=== PATIENT | female | born 1990 ===

== ENCOUNTER 2017-06-21 11:41 | Emergency (ER) | payer MEDICAID, OTHER ==
[2017-06-21] MEDS ORDERED: Sodium Chloride 0.9% 1,000 ML IV ONE ×2 (11:50→17:59)
[2017-06-21] MEDS ORDERED: Sodium Chloride 0.9% 1,000 ML ONE (11:55)
[2017-06-21 11:59] LABS: BASO % 0.5 % (0.0-2.0); EOS # 0.1 K/uL (0.0-0.7); EOS % 2.1 % (0.0-4.0); HEMOGLOBIN 12.5 g/dL (11.0-16.0); LYMPH # 1.8 K/uL (1.0-4.3); LYMPH % 26.8 % (20.0-40.0); MEAN CELL VOLUME 86.2 fL (81.0-99.0); MEAN CORPUSCULAR HEMOGLOBIN 29.4 pg (27.0-31.0); MEAN CORPUSCULAR HGB CONC 34.1 g/dL (33.0-37.0); MEAN PLATELET VOLUME 7.6 fL (7.2-11.7); MONO # 0.4 K/uL (0.0-0.8); MONO % 5.4 % (0.0-10.0); NEUT # 4.4 K/uL (1.8-7.0); NEUT % 65.2 % (50.0-75.0); NRBC % 0.1 % (0.0-2.0); RBC 4.23 Mil/uL (3.80-5.20); RED CELL DISTRIBUTION WIDTH 12.8 % (11.5-14.5); WHITE BLOOD COUNT 6.8 K/uL (4.8-10.8)
[2017-06-21 12:07] LABS: ALBUMIN 4.2 g/dL (3.5-5.0)
[2017-06-21 12:10] LABS: GFR AFRICAN-AMERICAN > 60; GFR NON-AFRICAN AMERICAN > 60
[2017-06-21 12:11] LABS: ALB/GLOB RATIO 1.3 (1.0-2.1); ALT/SGPT 22 U/L (9-52); AST/SGOT 20 U/L (14-36); BLOOD UREA NITROGEN 6 mg/dL (7-17); CALCIUM 8.2 mg/dl (8.6-10.4)
[2017-06-21] MEDS ORDERED: LIDOCAINE IV STA (12:20)
[2017-06-21] MEDS ORDERED: SODIUM CHLORIDE 0.9% IV STA (12:20)
[2017-06-21 13:17] LABS: HCG,QUALITATIVE URINE NEGATIVE (NEGATIVE)
[2017-06-21 13:23] LABS: SQUAMOUS EPITHIAL 13 /hpf (0-5); URINE BACTERIA RARE (<OCC); URINE BILIRUBIN NEGATIVE (NEGATIVE); URINE BLOOD 2+ (NEGATIVE); URINE CLARITY Hazy (Clear); URINE COLOR Yellow (YELLOW); URINE GLUCOSE (UA) NORMAL (Normal); URINE LEUKOCYTE ESTERASE TRACE Leu/uL (Negative); URINE NITRATE NEGATIVE (NEGATIVE); URINE PROTEIN NEGATIVE (NEGATIVE); URINE UROBILINOGEN NORMAL mg/dL (0.2-1.0)
--- NOTE | 2017-06-21 14:23 | C.PDOC ---
History Of Present Illness <Tiny Guerrero - Last Filed: 06/21/17 20:31> <FranklinrobertBelinda - Last Filed: 06/22/17 16:59> 26 y/o female presents to emergency department for evaluation of sudden left flank pain which onset this morning. Pt states pain is severe radiating to abdominal wall. Pain associated with discomfort on urination. Denies history of kidney disease. Denies fever, chills, chest pain, SOB, vomiting, diarrhea or any other complaints. (Belinda Leon) <Tiny Guerrero - Last Filed: 06/21/17 20:31> History Per: Patient History/Exam Limitations: no limitations Onset/Duration Of Symptoms: Hrs, Sudden Onset Current Symptoms Are (Timing): Still Present Severity: Severe Quality Of Discomfort: "Pain" Associated Symptoms: Urinary Symptoms. denies: Fever, Chills, Nausea, Vomiting Alleviating Factors: None Recent travel outside of the [place]: No <Belinda Leon - Last Filed: 06/22/17 16:59> Time Seen by Provider: 06/21/17 11:54 Chief Complaint (Nursing): Female Genitourinary Past Medical History Reviewed: Historical Data, Nursing Documentation, Vital Signs Surgical History: Cholecystectomy Family History: States: Unknown Family Hx - Social History Hx Alcohol Use: No Hx Substance Use: No - Immunization History Hx Influenza Vaccination: No <Belinda Leon - Last Filed: 06/22/17 16:59> Vital Signs: Last Vital Signs Temp 97.8 F 06/21/17 20:57 Pulse 72 06/21/17 20:57 Resp 18 06/21/17 20:57 BP 128/72 06/21/17 20:57 Pulse Ox 98 06/21/17 20:57 Review Of Systems Except As Marked, All Systems Reviewed And Found Negative. Constitutional: Negative for: Fever, Chills Cardiovascular: Negative for: Chest Pain Gastrointestinal: Negative for: Nausea, Vomiting, Diarrhea Genitourinary: Positive for: Dysuria, Other (left flank pain radiating to abdominal wall). Negative for: Hematuria <Belinda Leon - Last Filed: 06/22/17 16:59> Physical Exam - Physical Exam Appears: Well, Non-toxic, No Acute Distress Skin: Normal Color, Warm, Dry, No Rash Eye(s): bilateral: PERRL Nose: No Flaring Oral Mucosa: Moist, No Drooling, No Trismus Throat: No Erythema, No Exudate, No Drooling Neck: Supple Cardiovascular: Rhythm Regular Respiratory: No Stridor, No Wheezing Gastrointestinal/Abdominal: Soft, Tenderness (mild left sided tenderness), No Distention, No Guarding, No Rebound Back: No CVA Tenderness, Other (Let flank tenderness) Extremity: No Pedal Edema Neurological/Psych: Oriented x3, Normal Speech <FranklinrobertBelinda - Last Filed: 06/22/17 16:59> ED Course And Treatment - Laboratory Results Result Diagrams: 06/21/17 11:53 06/21/17 11:53 Reevaluation Time: 20:31 Reassessment Condition: Improved (APPEARS COMFORTABLE NAD. US REPORT REVIEWED. ADONAY W ABX FOR POSSIBLE DIVERTICULITIS, ADVISED PMD FU) <CesarTiny - Last Filed: 06/21/17 20:31> - Laboratory Results Result Diagrams: 06/21/17 11:53 06/21/17 11:53 O2 Sat by Pulse Oximetry: 100 (room air) Pulse Ox Interpretation: Normal - CT Scan/US CT abd/pelvis Other Rad Studies (CT/US): Radiology Report Reviewed CT/US Interpretation: Accession No. : [id number]. Patient Name / ID : MAYLIN DE LA TORRE / [id number]. Exam Date : 06/21/2017 15:23:08 ( Approved ). Study Comment : Sex / Age : F / 26Y. Creator : Selene Balderas MD. Dictator : Administrative Support Associate : Hat Lining Paster : Selene Balderas MD. Approver2 : Report Date : 06/21/2017 17:09:56. My Comment : . PROCEDURE: CT Abdomen and Pelvis without Oral or IV contrast. HISTORY: Left flank pain. COMPARISON : None available. TECHNIQUE: Contiguous axial images of the abdomen and pelvis. No oral or IV contrast administered. Coronal and Sagittal reformats generated and reviewed. Radiation dose: Total exam DLP = 192.12 mGy-cm. This CT exam was performed using one or more of the following dose reduction techniques: Automated exposure control, adjustment of the mA and/or kV according to patient size, and/or use of iterative reconstruction technique. FINDINGS: There is limited evaluation of the solid organs without the administration of IV contrast. LOWER THORAX: No visible consolidation, pleural effusion, or pneumothorax. LIVER: Unremarkable unenhanced appearance. GALLBLADDER AND BILE DUCTS: Not visualized ; either decompressed or surgically removed. Surgical clips are not identified. PANCREAS: Unremarkable unenhanced appearance. SPLEEN: Unremarkable unenhanced appearance. ADRENALS: Unremarkable unenhanced appearance. KIDNEYS AND URETERS: No hydronephrosis or obstructing renal calculus. BLADDER: The urinary bladder appears unremarkable. REPRODUCTIVE: Uterus is present. 3.1 x 3.6 cm left adnexal lesion measures approximately 16 Hounsfield units, indeterminate; possibly hemorrhagic cyst. APPENDIX: The presumed appendix appears within normal limits of caliber. No secondary signs of acute appendicitis. BOWEL: The stomach is nondistended. Lack of oral contrast limits evaluation for bowel pathology. The bowel loops appear within normal limits of caliber without evidence of intestinal obstruction. Scattered diverticula. Minimal associated inflammatory changes at the level of the left colon; diverticulitis cannot be excluded. Correlate clinically. PERITONEUM: No significant free fluid. No definite free air. LYMPH NODES: No bulky lymphadenopathy identified. VASCULATURE: No aortic aneurysm. BONES: No acute osseous abnormality is detected. OTHER FINDINGS: None. IMPRESSION: 3.1 x 3.6 cm left adnexal lesion measures approximately 16 HU, indeterminate; possibly hemorrhagic cyst. Recommend correlation with pelvic ultrasound. Scattered diverticula. Minimal associated inflammatory changes at the level of the left colon; diverticulitis cannot be excluded. Correlate clinically. Additional findings as above. Progress Note: Case discussed with . US pelvic results pending. Re-eval and dispo- pending. <Belinda Leon - Last Filed: 06/22/17 16:59> Disposition Counseled Patient/Family Regarding: Studies Performed, Diagnosis, Need For Followup, Rx Given - Disposition Disposition Time: 20:31 <Tiny Guerrero - Last Filed: 06/21/17 20:31> <Belinda Leon - Last Filed: 06/22/17 16:59> - Disposition Referrals: [facility] [Outside] [facility] [Outside] Disposition: HOME/ ROUTINE Condition: IMPROVED Prescriptions: Ciprofloxacin [Cipro] 1 tab PO BID #14 tab Ibuprofen [Motrin] 400 mg PO QID #30 tab Metronidazole [Flagyl] 500 mg PO BID #14 tab Instructions: Diverticulitis (ED) Forms: Work/School/Gym Excuse, [facility] (Wolof) Print Language: LAO - Clinical Impression Clinical Impression: Abdominal pain <Tiny Guerrero - Last Filed: 06/21/17 20:31> - PA / [employer]ER / Resident Statement MD/DO has reviewed & agrees with the documentation as recorded. - Scribe Statement The provider has reviewed the documentation as recorded by the Scribe <Belinda Leon - Last Filed: 06/22/17 16:59> - Scribe Statement Nicholas Morataya All medical record entries made by the Scribe were at my direction and personally dictated by me. I have reviewed the chart and agree that the record accurately reflects my personal performance of the history, physical exam, medical decision making, and the department course for this patient. I have also personally directed, reviewed, and agree with the discharge instructions and disposition. (Belinda Leon)
--- NOTE | 2017-06-21 17:12 | CT ---
PROCEDURE: CT Abdomen and Pelvis without Oral or IV contrast. HISTORY: Left flank pain COMPARISON: None available. TECHNIQUE: Contiguous axial images of the abdomen and pelvis. No oral or IV contrast administered. Coronal and Sagittal reformats generated and reviewed. Radiation dose: Total exam DLP = 192.12 mGy-cm. This CT exam was performed using one or more of the following dose reduction techniques: Automated exposure control, adjustment of the mA and/or kV according to patient size, and/or use of iterative reconstruction technique. FINDINGS: There is limited evaluation of the solid organs without the administration of IV contrast. LOWER THORAX: No visible consolidation, pleural effusion, or pneumothorax. LIVER: Unremarkable unenhanced appearance. GALLBLADDER AND BILE DUCTS: Not visualized ; either decompressed or surgically removed. Surgical clips are not identified. PANCREAS: Unremarkable unenhanced appearance. SPLEEN: Unremarkable unenhanced appearance. ADRENALS: Unremarkable unenhanced appearance. KIDNEYS AND URETERS: No hydronephrosis or obstructing renal calculus. BLADDER: The urinary bladder appears unremarkable. REPRODUCTIVE: Uterus is present. 3.1 x 3.6 cm left adnexal lesion measures approximately 16 Hounsfield units, indeterminate; possibly hemorrhagic cyst. APPENDIX: The presumed appendix appears within normal limits of caliber. No secondary signs of acute appendicitis. BOWEL: The stomach is nondistended. Lack of oral contrast limits evaluation for bowel pathology. The bowel loops appear within normal limits of caliber without evidence of intestinal obstruction. Scattered diverticula. Minimal associated inflammatory changes at the level of the left colon; diverticulitis cannot be excluded. Correlate clinically. PERITONEUM: No significant free fluid. No definite free air. LYMPH NODES: No bulky lymphadenopathy identified. VASCULATURE: No aortic aneurysm. BONES: No acute osseous abnormality is detected. OTHER FINDINGS: None. IMPRESSION: 3.1 x 3.6 cm left adnexal lesion measures approximately 16 HU, indeterminate; possibly hemorrhagic cyst. Recommend correlation with pelvic ultrasound. Scattered diverticula. Minimal associated inflammatory changes at the level of the left colon; diverticulitis cannot be excluded. Correlate clinically. Additional findings as above.
--- NOTE | 2017-06-21 20:15 | US ---
EXAM: US Pelvis Complete, Transabdominal US Pelvis, Transvaginal CLINICAL HISTORY: 26 years old, female; Pain; Other: Lt falnk pain; Additional info: Left flank pain, negative urine test. TECHNIQUE: Real-time transabdominal and transvaginal pelvic ultrasound (complete) with image documentation. Transvaginal imaging was used for better evaluation of the endometrium and adnexa. EXAM DATE/TIME: 06/21/2017 5:58 PM COMPARISON: Report from a recent prior CT pelvis, done earlier today. The prior study itself is currently unavailable. FINDINGS: Uterus: Within normal limits in appearance. Measures 7.8 x 3.1 x 4.0 cm. Endometrial stripe does not appear abnormally thickened, measuring 8.6 mm. No fibroids seen. Cervix appears closed. Right ovary: Somewhat poorly seen due to gas. Within normal limits in appearance. Measures 2.5 x 2.2 x 2.0 cm. Flow seen in the right ovary on color and Doppler imaging, with no evidence of torsion. Left ovary: Measures 4.7 x 3.0 x 4.3 cm. Contains a cystic lesion measuring 3.9 x 2.6 x 3.1 cm. This lesion appears simple internally. Low level echoes are seen within it, felt to represent artifact. Flow seen in the left ovarian parenchyma surrounding this lesion on color and Doppler imaging. Cul-de-sac: Small amount of free fluid is seen. This may be physiologic in nature. IMPRESSION: No significant acute abnormality identified. No evidence of ovarian torsion. 3.9 cm simple cystic lesion in the left ovary. This cyst is almost certainly benign. No follow-up is necessary, based on the imaging findings. Small amount of free fluid in the cul-de-sac. This is most likely physiologic in nature. See above for remaining findings.
[2017-06-21 21:09] VITALS: BP 128/72; PULSE 72; RESP 18; TEMP 97.8
[2017-06-22 16:59] VITALS: O2SAT 100
== END 2017-06-21 20:57 | disposition home or self-care (01) ==
LOC: C.ER 11:41
DX: R10.9 Unspecified abdominal pain (principal)
CPT/HCPCS: 74176; 76830; 76856; 80053; 81001; 84703; 85025; 96361; 96374; 96375; 99285; J1885; J2001; J2405; J7040